=== PATIENT | female | born 1980 | race Hispanic/Latino ===

== ENCOUNTER → 2016-12-24 | Day surgery (SDC) | payer OTHER ==
[2016-12-21 09:05] VITALS: BMI 29.0
--- NOTE | 2016-12-24 12:34 | CP.SDSHP ---
Same Day Surgery H & P - History Proposed Procedure: US guided FNA of left thyroid nodule Pre-Op Diagnosis: Thyroid nodule - Allergies Allergies: Allergies No Known Allergies Allergy (Verified 12/21/16 09:05) - Physical Exam Mental Status: Alert & Oriented x3 - Impression Impression: Pt with 1.5 cm left thyroid nodule. Pt with a heterogenous nodule with left thyroid and heterogenous area within the right thyroid. There are no definite nodules in the right thyroid gland. Plan US guided FNA. Pt. Evaluated Today:Candidate for Anesthesia & Procedure: No - Date & Time Date: 12/24/16 Time: 12:00 Short Stay Discharge - Short Stay Discharge Admitting Diagnosis/Reason for Visit: THYROID NODULE
--- NOTE | 2016-12-24 12:36 | PCM.SURG1 ---
Surgeon's Initial Post Op Note - Surgeon's Notes Surgeon: Ajay Brush MD [employer] Equipment Operator: None Type of Anesthesia: Local Pre-Operative Diagnosis: Left thyroid nodule Operative Findings: Heterogenous 1.5 cm nodule left thyroid. Post-Operative Diagnosis: Left thyroid nodule Operation Performed: US guided FNA of left thyroid gland. Four 25 g FNA specimen obtained. Specimen/Specimens Removed: 25 g FNA x 4 Estimated Blood Loss: EBL {In ML}: 0 Blood Products Given: N/A Drains Used: No Drains Post-Op Condition: Fair Date of Surgery/Procedure: 12/24/16 Time of Surgery/Procedure: 12:30
== END | disposition home or self-care (01) ==
LOC: C.SPRAD 09:47
PROVIDERS: ATTEND Radiology Vascular & Interventional Radiology
DX: E04.1 Nontoxic single thyroid nodule (principal)